=== PATIENT | female | born 1975 ===

== ENCOUNTER 2021-10-04 15:50 | Emergency (ER) | payer SELFPAY ==
[~2021-10-04] VITALS: Ht 165.1 cm; Wt 70.9 kg
[~2021-10-04 15:50] MED LIST: NO HOME MEDICATIONS
[2021-10-04 16:09] VITALS: BP 109/74; PULSE 94; TEMP 98.4
== END 2021-10-04 17:19 | disposition left against medical advice (07) ==
LOC: COL.ER 15:50
DX: M54.2 Cervicalgia (principal)